=== PATIENT | male | born 1945 | race Caucasian/White ===

== ENCOUNTER 2019-03-15 16:23 | Emergency (ER) | payer MEDICARE ==
[2019-03-15 16:37] VITALS: BP 144/76; PULSE 66; RESP 18; TEMP 98.7
--- NOTE | 2019-03-15 18:08 | ED ---
General Adult HPI - General Chief complaint: Recheck/Abnormal Lab/Rx Stated complaint: left wrist/arm swelling Time Seen by Provider: 03/15/19 17:27 Source: patient, RN notes reviewed Mode of arrival: ambulatory Limitations: no limitations - History of Present Illness Initial comments: 73-year-old male with a past medical history of hypertension, hyperc holesterolemia presents to the emergency department for a chief complaint of swelling noted to right the left wrist. Patient states this just started yesterday. Patient states that on March 04 about a week and half ago he had a peripheral IV placed in his left hand. States that his vein and felt hard since then. Patient states yesterday he started some redness just proximal to this. No fevers or chills. No spreading redness. No pain with movement of the wrist. Patient has no other complaints at this time including shortness of breath, chest pain, abdominal pain, nausea or vomiting, headache, or visual changes. - Related Data Previous Rx's Medication Instructions Recorded Cephalexin [Keflex] 500 mg PO Q6H 7 Days cap 03/15/19 Allergies Allergy/AdvReac Type Severity Reaction Status Date / Time No Known Allergies Allergy Verified 03/15/19 18:14 Review of Systems ROS Statement: Those systems with pertinent positive or pertinent negative responses have been documented in the HPI. ROS Other: All systems not noted in ROS Statement are negative. Past Medical History Past Medical History: Hypertension Additional Past Medical History / Comment(s): hypercholestremia. History of Any Multi-Drug Resistant Organisms: None Reported Past Surgical History: Appendectomy Additional Past Surgical History / Comment(s): hernia repair. orthopedic. Past Psychological History: No Psychological Hx Reported Smoking Status: Never smoker Past Alcohol Use History: Occasional Past Drug Use History: None Reported General Exam Limitations: no limitations General appearance: alert, in no apparent distress Head exam: Present: atraumatic, normocephalic, normal inspection Eye exam: Present: normal appearance, PERRL, EOMI. Absent: scleral icterus, conjunctival injection, periorbital swelling ENT exam: Present: normal exam, mucous membranes moist Neck exam: Present: normal inspection, full ROM. Absent: tenderness, meningismus, lymphadenopathy Respiratory exam: Present: normal lung sounds bilaterally. Absent: respiratory distress, wheezes, rales, rhonchi, stridor Cardiovascular Exam: Present: regular rate, normal rhythm, normal heart sounds. Absent: systolic murmur, diastolic murmur, rubs, gallop, clicks Extremities exam: Present: full ROM (Full range motion of the left wrist), tenderness (Mild tenderness noted to the distal dorsal left forearm), normal capillary refill (Capillary refill less than 2 seconds, radial pulse 2+ and left upper extremity), other (Sensation intact in the left upper extremity. Patient has 4 cm x 4 cm area of the slight erythema noted to the dorsal left distal forearm. No significant edema present.) Course Vital Signs 03/15/19 16:32 Temperature 98.7 F Pulse Rate 66 Respiratory 18 Rate Blood Pressure 144/76 O2 Sat by Pulse 95 Oximetry Medical Decision Making - Medical Decision Making 73-year-old male presents to the emergency department for chief complaint of redness to the distal left forearm. States this has been ongoing for one day. Patient states he had an IV placed in the left dorsal hand a week and a half ago and that this redness starting yesterday. Patient states his vein felt very hard prior to this. On exam patient is a 4 cm x 4 cm area of very mild erythema noted to the dorsal distal forearm. Full range motion of the wrist and all digits in the hand. Neurovascular status intact. He then history of peripheral IV Patient likely has a superficial thrombophlebitis. Discussed warm compresses and Motrin and Tylenol usage. Also discussed possibility of cellulitis as this is somewhat warm. Patient will be started on Keflex although this is less likely to be the cause. Patient will follow up with primary care in 1-2 days or return here if he has any worsening symptoms. Disposition Clinical Impression: Superficial thrombophlebitis of arm Disposition: HOME SELF-CARE Condition: Good Instructions (If sedation given, give patient instructions): Superficial Thrombophlebitis (ED) Additional Instructions: Please take antibiotics as directed. Apply warm compresses and take Motrin and Tylenol. Follow up with primary care in 1-2 days. Return here if patient has any worsening symptoms. Prescriptions: Cephalexin [Keflex] 500 mg PO Q6H 7 Days cap Is patient prescribed a controlled substance at d/c from ED?: No Referrals: Eliana Murphy DO [Primary Care Provider] - 1-2 days Time of Disposition: 18:07
== END 2019-03-15 18:24 | disposition home or self-care (01) ==
LOC: EC 16:23
DX: I80.8 Phlebitis and thrombophlebitis of other sites (principal)
CPT/HCPCS: 99283